=== PATIENT | female | born 1985 | race Caucasian/White ===

== ENCOUNTER 2018-07-16 12:14 | Emergency (ER) | payer BC, OTHER ==
[~2018-07-16] VITALS: Ht 172.7 cm; Wt 97.5 kg
[2018-07-16] MEDS ORDERED: cloNIDine HCL 0.1 MG TAB ONE (12:35)
[2018-07-16] MEDS ORDERED: cloNIDine HCL 0.1 MG TAB PO ONE (12:45)
[2018-07-16] MEDS ORDERED: SODIUM CHLORIDE 0.9% 1,000 ML IV ONE (13:01)
[2018-07-16 13:26] LABS: Basophils # (auto) 0 uL; Eosinophils # (auto) 0 uL; Hemoglobin 11.9 g/dL (12.2-16.2); Mean Corpuscular Volume 82.1 fL (80.0-100.0); Monocytes # (auto) 0.3 uL; Nucleated Red Blood Cells % 0.1 %
[2018-07-16 13:28] LABS: Basophils % (auto) 0.3 % (0.0-2.0); Eosinophils % (auto) 0.4 % (0.0-7.0); Hematocrit 37.6 % (36.0-46.0); Lymphocytes # (auto) 1.6 uL; Lymphocytes % (auto) 39.4 % (10.0-50.0); Mean Corpuscular Hgb Conc. 31.6 g/dL (32.0-36.0); Monocytes % (auto) 6.7 % (0.0-12.0); Neutrophils # (auto) 2.1 uL; Neutrophils % (auto) 53.2 % (37.0-80.0); Platelet Count (auto) 348 10^3/uL (140-450); Red Blood Cells 4.58 10^6/uL (4.0-5.20); Red Cell Distribution Width 15.6 % (11.8-14.3)
[2018-07-16 13:46] LABS: Albumin 3.9 g/dL (3.4-5.0); Anion Gap 6 (5-15); Blood Urea Nitrogen 6 mg/dL (7-18); Calcium 9.1 mg/dL (8.5-10.1); Carbon Dioxide 28 mmol/L (21-32); Chloride 101 mmol/L (98-107); Glucose 87 mg/dL (74-106); Potassium 3.1 mmol/L (3.5-5.1); Sodium 135 mmol/L (136-145)
[2018-07-16 13:53] LABS: Alanine Aminotransferase 17 U/L (13-56); Alkaline Phosphatase 57 U/L (45-117); Aspartate Aminotransferase 17 U/L (15-37); Bilirubin, Total 0.4 mg/dL (0.2-1.0); GFR African American 130 mL/min; GFR Non-African American 107 mL/min; Total Protein 8.7 g/dL (6.4-8.2)
[2018-07-16 14:02] LABS: Urine Bacteria NONE SEEN /hpf (None Seen); Urine Blood Negative /uL (Negative); Urine Specific Gravity 1.002 (1.001-1.035); Urine WBC <1 /hpf (0 - 5)
[2018-07-16 15:30] VITALS: BP 151/95
[2018-07-16] MEDS ORDERED: POTASSIUM CHL 10% (20 MEQ/15ML) 15ml ORAL SOLN PO ONE (15:30)
== END 2018-07-16 15:57 | disposition home or self-care (01) ==
LOC: ER 12:19
DX: I10 Essential (primary) hypertension (principal); E87.6 Hypokalemia
CPT/HCPCS: 36415; 71046; 80053; 81001; 81025; 83735; 84443; 84484; 85025; 93005; 94761

== ENCOUNTER 2023-01-27 09:44 | Emergency (ER) | payer BC, OTHER ==
[~2023-01-27] VITALS: Ht 172.7 cm; Wt 98.3 kg
[2023-01-27] MEDS ORDERED: IBUP-1456 PO (11:33)
[2023-01-27] MEDS ORDERED: METH-1182 PO (11:33)
[2023-01-27] MEDS ORDERED: ACETAMINOPHEN 500 MG TAB PO ONE (11:45)
[2023-01-27 11:47] VITALS: BP 133/86; PULSE 85; RESP 18; O2SAT 18
== END 2023-01-27 11:48 | disposition home or self-care (01) ==
LOC: ER 09:44
DX: S16.1XXA Strain of muscle, fascia and tendon at neck level, initial encounter (principal); V89.0XXA Person injured in unspecified motor-vehicle accident, nontraffic, initial encounter; Y93.89 Activity, other specified; Y92.89 Other specified places as the place of occurrence of the external cause; Y99.8 Other external cause status
CPT/HCPCS: 72040